=== PATIENT | female | born 1965 | race Caucasian/White ===

== ENCOUNTER → 2016-12-30 | Outpatient (CLI) | payer BC ==
[~2016-12-30] MED LIST: ALBUAER19 INH; ATOR10TA82 PO; FEXO1TAB58 PO; FLUO20CA35 PO; FLUT110A INH; MONT1TAB3 PO
[2016-12-30 14:36] LABS: CHOLESTEROL/HDL RATIO 3.1
== END | disposition home or self-care (01) ==
LOC: C.LABBC 10:31
PROVIDERS: ATTEND Family Medicine
DX: R73.09 Other abnormal glucose (principal); E78.5 Hyperlipidemia, unspecified

== ENCOUNTER → 2017-03-23 | Outpatient (CLI) | payer BC ==
[~2017-03-23] MED LIST changes: -ATOR10TA82 PO; +ATOR10TA88 PO
== END | disposition home or self-care (01) ==
LOC: C.LABBC 09:55
PROVIDERS: ATTEND Family Medicine
DX: M79.605 Pain in left leg (principal)

== ENCOUNTER → 2017-09-07 | Outpatient (CLI) | payer BC ==
[~2017-09-07] MED LIST changes: +ATOR10TA82 PO; -ATOR10TA88 PO
--- NOTE | 2017-09-07 10:20 | DIAGNOSTIC IMAGING REPORT ---
CHEST 2 VIEWS ROUTINE CLINICAL HISTORY: 52 years-old Female presenting with FATIGUE. TECHNIQUE: PA and lateral views of the chest were obtained. COMPARISON: None. FINDINGS: Cardiomediastinal silhouette normal. Vague retrocardiac opacity in the left lower lobe. Trace left pleural effusion may be present. No pneumothorax. Right lung and pleural space clear. Osseous structures normal. Upper abdomen normal. IMPRESSION: 1. Right lower lobe consolidation concerning for pneumonia. Parapneumonic effusion is present. Further evaluation with CT to be considered. Electronically signed by: Mohan Boswell M.D. 09/07/2017 10:19 AM Dictated Date/Time: 09/07/2017 10:18 AM
[2017-09-07 14:38] LABS: BASO % 0.5 %; BASO ABS # 0.06 K/uL (0-0.2); COMPLETE YES; EOS % 1.4 %; HEMATOCRIT 38.2 % (37-47); IG% 0.4 %; LYMPH % 10.8 %; LYMPH ABS # 1.39 K/uL (1.2-3.4); MEAN CELL VOLUME 85.3 fL (80-100); MEAN CORPUSCULAR HEMOGLOBIN 28.3 pg (25-34); MEAN CORPUSCULAR HGB CONC 33.2 g/dl (32-36); MEAN PLATELET VOLUME 9.6 fL (7.4-10.4); MONO % 10.5 %; NEUT % 76.4 %; PLATELET COUNT 361 K/uL (130-400); RED BLOOD COUNT 4.48 M/uL (4.2-5.4); WHITE BLOOD COUNT 12.85 K/uL (4.8-10.8)
[2017-09-07 14:47] LABS: BLOOD UREA NITROGEN 6 mg/dl (7-18); BUN/CREATININE RATIO 7.4 (10-20); CALCIUM 9.4 mg/dl (8.5-10.1); CARBON DIOXIDE 29 mmol/L (21-32); CHLORIDE 97 mmol/L (98-107); CREATININE 0.76 mg/dl (0.60-1.20); GLUCOSE 118 mg/dl (70-99); POTASSIUM 4.2 mmol/L (3.5-5.1); SODIUM 130 mmol/L (136-145)
== END | disposition home or self-care (01) ==
LOC: C.RADBC 09:56
PROVIDERS: ATTEND Physician Assistant
DX: R53.83 Other fatigue (principal)

== ENCOUNTER → 2017-10-19 | Outpatient (CLI) | payer BC ==
--- NOTE | 2017-10-19 11:26 | DIAGNOSTIC IMAGING REPORT ---
CHEST 2 VIEWS ROUTINE CLINICAL HISTORY: J18.9 Pneumonia pneumonia COMPARISON STUDY: 09/07/2017 FINDINGS: Improving infiltrate left base. Mild residual atelectasis. Lungs otherwise appear clear. Diaphragms smooth. IMPRESSION: Improved exam with minimal residual atelectasis left base. The above report was generated using voice recognition software. It may contain grammatical, syntax or spelling errors. Electronically signed by: Jacob Boswell M.D. 10/19/2017 11:25 AM Dictated Date/Time: 10/19/2017 11:24 AM
== END | disposition home or self-care (01) ==
LOC: C.RADBC 11:07
PROVIDERS: ATTEND Nurse Practitioner Adult Health
DX: J18.9 Pneumonia, unspecified organism (principal)